=== PATIENT | female | born 1950 | race African-American/Black ===

== ENCOUNTER 2016-12-21 06:59 | Inpatient (IN) | payer OTHER, MEDICARE ==
[2016-12-21] VITALS (13 sets, daily range): BP systolic 102–123; BP diastolic 48–65
[~2016-12-21] VITALS: Ht 170.2 cm; Wt 95.3 kg
[2016-12-21] MEDS ORDERED: celeBREX 200mg Cap **SURGERY PATIENTS ONLY ORAL SCH (07:45)
[2016-12-21] MEDS ORDERED: Clindamycin 600mg/D5W 50ml Pre-Mix IV ONE (07:45)
[2016-12-21] MEDS ORDERED: oxyCONTIN 20mg tab ORAL ONE (07:45)
[2016-12-21] MEDS ORDERED: METFORMIN HCL1000 M1 ORAL (09:50)
[2016-12-21] MEDS ORDERED: TRULICITY0.75 MG/0. SQ (10:00)
[2016-12-21] MEDS ORDERED: LISINOPRIL10 MG ORAL (10:00)
[2016-12-21] MEDS ORDERED: LIPITOR80 MG ORAL (10:15)
[2016-12-21] MEDS ORDERED: CIPRO250 MG ORAL (10:15)
[2016-12-21] MEDS ORDERED: jardiance (10:17)
[2016-12-21] MEDS ORDERED: Propofol 10mg/ml 20ml IV ONE (10:56)
[2016-12-21] MEDS ORDERED: Morphine Sulfate 2mg/ml Inj ONE (10:56)
[2016-12-21] MEDS ORDERED: Morphine Sulfate 4mg/ml Inj ONE (10:56)
[2016-12-21] MEDS ORDERED: fentaNYL 100 mcg/2 mL IV ONE (10:56)
[2016-12-21] MEDS ORDERED: celeBREX 200mg Cap **SURGERY PATIENTS ONLY ORAL ONE (11:36)
[2016-12-21] MEDS ORDERED: Bacitracin 50000 Units Vial ONE (13:40)
[2016-12-21] MEDS ORDERED: Clindamycin 600mg 50 ML IV ONE (13:40)
--- NOTE | 2016-12-21 14:14 | Pre-Procedure Note/Attestation ---
Pre-Procedure Note/Attestation Complete Prior to Procedure Planned Procedure: left Procedure Narrative: left tka Indications for Procedure Pre-Operative Diagnosis: left knee oa Attestation I attest that I discussed the nature of the procedure; its benefits; risks and complications; and alternatives (and the risks and benefits of such alternatives ), prior to the procedure, with the patient (or the patient's legal member service representative). I attest that, if there was a reasonable possibility of needing a blood transfusion, the patient (or the patient's legal member service representative) was given the [facility] standardized written summary, pursuant to the [place] Blood Safety Act ([place] Health and Safety Code # 1645, as amended). I attest that I re-evaluated the patient just prior to the surgery and that there has been no change in the patient's H&P, except as documented below: LINDA VENTURA Dec 21, 2016 14:14
[2016-12-21] MEDS ORDERED: Morphine Sulfate 4mg/ml Inj IVP PRN (14:15)
[2016-12-21] MEDS ORDERED: Morphine Sulfate 2mg/ml Inj IVP PRN ×3 (14:15→18:00)
[2016-12-21] MEDS ORDERED: Milk of Magnesia 30ml Ud ORAL PRN (14:15)
--- NOTE | 2016-12-21 14:16 | Operative Note - PDOC ---
Operative Note Operative Note Pre-op Diagnosis: left knee oa Procedure: left tka Post-op Diagnosis: same as pre-op Operative Findings: consistent w/pre-op dx studies Anesthesia: regional Specimen: yes Complications: none Condition: stable Estimated Blood Loss: minimal Drains: none Implant(s) used?: Yes LINDA VENTURA Dec 21, 2016 14:16
[2016-12-21] MEDS ORDERED: NS Irrig 1000ml IRRIG ONE (14:22)
[2016-12-21] MEDS ORDERED: Duramorph PF 10mg/10ml amp EPIDUR ONE (14:22)
[2016-12-21] MEDS ORDERED: LR 1000ml 1,000 ML IVLG SCH (15:26)
--- NOTE | 2016-12-21 15:26 | Anethesia Preoperative Eval ---
Anesthesia Pre-op PMH/ROS General Date of Evaluation: Dec 21, 2016 Time of Evaluation: 13:48 Anesthesiologist: Martín ASA Score: ASA 3 Mallampati Score Class I : Soft palate, uvula, fauces, pillars visible Class II: Soft palate, uvula, fauces visible Class III: Soft palate, base of uvula visible Class IV: Only hard plate visible Mallampati Classification: Class II Surgeon: Reji Diagnosis: L knee DJD Surgical Procedure: L knee arthroplasty Anesthesia History: none Family History: no anesthesia problems Allergies: Coded Allergies: ORANGE (Verified Allergy, Mild, 12/21/16) WALNUT (Verified Allergy, Mild, 12/21/16) PENICILLINS (Verified Allergy, Unknown, 12/20/16) Medications: see eMAR Past Medical History Cardiovascular: Reports: HTN, Denies: CAD, [place], arrhythmia, other, valve dz Pulmonary: Denies: COPD, LALO, asthma, other Gastrointestinal/Genitourinary: Reports: GERD, Denies: CRI, ESRD, other Neurologic/Psychiatric: Denies: CVA, TIA, dementia, depression/anxiety, other Endocrine: Reports: DM - on pills stable, Denies: hypothyroidism, other, steroids HEENT: Denies: ABSENTEE-SHAWNEE (L), ABSENTEE-SHAWNEE (R), cataract (L), cataract (R), glaucoma, other Hematology/Immune: Denies: DVT, anemia, bleeding disorder, other Musculoskeletal/Integumentary: Reports: DJD, Denies: DDD, OA, RA, edema, other Other: obesity PMH Narrative: as above PSxH Narrative: abdominoplasty Anesthesia Pre-op Phys. Exam Physician Exam Last Vital Signs Date Time Temp Pulse Resp B/P Pulse Ox O2 Delivery O2 Flow Rate FiO2 12/21/16 09:17 97.0 76 18 123/65 96 Room Air Constitutional: NAD Neurologic: CN 2-12 intact Cardiovascular: RRR, no M/R/G Respiratory: CTA Gastrointestinal: other - obesity Airway Exam Mallampati Score: Class II MO: limited Neck: flexible ROM: full Teeth: intact Dentures: no lower, no upper Anesthesia Pre-op A/P Labs see chart Studies Pre-op Studies: EKG - NSR Risk Assessment & Plan Assessment: ASA 3 Plan: SAB vs GA L femoral nerve block for postoperative analgesia on surgeon request. Status Change Before Surgery: No Pre-Antibiotics Drug: Clindamycin 600mg. Given Within 1 Hr of Incision: Yes Time Given: 15:05 AIDE BRYANT M.D. Dec 21, 2016 15:26
[2016-12-21] MEDS ORDERED: DiphenhydrAMINE 50mg/ml Inj IVP PRN (15:30)
[2016-12-21] MEDS ORDERED: Meperidine 25mg/ml Inj IV PRN (15:30)
[2016-12-21] MEDS ORDERED: Tranexamic Acid 1,000 MG in NS 55 ML IVPB ONE (15:30)
[2016-12-21] MEDS ORDERED: Kenalog-40 1ml Vial ONE (15:52)
[2016-12-21] MEDS ORDERED: Morphine Sulfate PF 10 ML ONE (15:52)
[2016-12-21] MEDS ORDERED: Ketorolac 30mg Inj ONE (15:53)
[2016-12-21] MEDS ORDERED: Bupivacaine w/Epi 0.25% 30ml Vial INJ ONE (15:53)
[2016-12-21] MEDS ORDERED: Midazolam 2mg/2ml Inj IVP PRN (18:00)
[2016-12-21] MEDS: Pericolace tab ORAL SCH (20:00)
[2016-12-21] MEDS: Docusate 100mg tablet ORAL SCH (20:00)
--- NOTE | 2016-12-21 21:02 | Consultation ---
History of Present Illness General Date patient seen: Dec 21, 2016 Time patient seen: 20:57 Chief Complaint: L knee pain Referring physician: Stephen Mendoza MD Reason for Consultation: Medical management Present Illness Allergies: Coded Allergies: ORANGE (Verified Allergy, Mild, 12/21/16) WALNUT (Verified Allergy, Mild, 12/21/16) PENICILLINS (Verified Allergy, Unknown, 12/20/16) Medication History Scheduled Atorvastatin (Lipitor), 40 MG ORAL BEDTIME, (Reported) Ciprofloxacin HCl (Cipro), 500 MG ORAL EVERY 12 HOURS, (Reported) Dulaglutide (Trulicity), 0.75 MG SQ 1xweek, (Reported) Lisinopril* (Lisinopril*), 10 MG ORAL DAILY, (Reported) Metformin Hcl* (Metformin Hcl*), 1,000 MG ORAL BID, (Reported) [jardiance], 25 MG DAILY, (Reported) Patient History History Provided By: Patient Healthcare decision maker ADRYAN MURDOCK Resuscitation status Advanced Directive on File Past Medical/Surgical History Past Medical/Surgical History: (1) HTN (hypertension) (2) DM2 (diabetes mellitus, type 2) (3) Arthritis of knee, left Family History Family History: (1) Family history in first degree relatives is unremarkable Social History Social History: (1) No significant social history Review of Systems ROS Narrative CONSTITUTIONAL: No weight loss, fever, chills, weakness or fatigue. HEENT: Eyes: No visual loss, blurred vision, double vision or yellow sclerae. Ears, Nose, Throat: No hearing loss, sneezing, congestion, runny nose or sore throat. SKIN: No rash or itching. CARDIOVASCULAR: No chest pain, chest pressure or chest discomfort. No palpitations or edema. RESPIRATORY: No shortness of breath, cough or sputum. GASTROINTESTINAL: No anorexia, nausea, vomiting or diarrhea. No abdominal pain or blood. NEUROLOGICAL: No headache, dizziness, syncope, paralysis, ataxia, numbness or tingling in the extremities. No change in bowel or bladder control. MUSCULOSKELETAL: No muscle, back pain, +L knee joint pain no stiffness. HEMATOLOGIC: No anemia, bleeding or bruising. LYMPHATICS: No enlarged nodes. No history of splenectomy. PSYCHIATRIC: No history of depression or anxiety. ENDOCRINOLOGIC: No reports of sweating, cold or heat intolerance. No polyuria or polydipsia. ALLERGIES: No history of asthma, hives, eczema or rhinitis. Physical Exam Physical Exam Narrative General: alert, cooperative, no distress, appears stated age Head: normocephalic, without obvious abnormality, atraumatic Eyes: conjunctivae/corneas clear. PERRL, EOM's intact Throat: lips, mucosa, and tongue normal. MMM Neck: supple, symmetrical, trachea midline, and no JVD Lungs: clear to auscultation bilaterally Heart: regular rate and rhythm, S1, S2 normal, no murmur, click, rub or gallop Abdomen: soft, non-tender, non-distended, bowel sounds normal; no masses or organomegaly Extremities: extremities normal, atraumatic, no cyanosis or edema Pulses: 2+ and symmetric Skin: skin color, texture, turgor normal; no rashes or lesions Neurologic: grossly normal, no focal deficits Last 24 Hour Vital Signs Date Time Temp Pulse Resp B/P Pulse Ox O2 Delivery O2 Flow Rate FiO2 12/21/16 19:00 98.1 84 20 113/57 95 Nasal Cannula 2.0 12/21/16 18:50 98.0 85 18 110/55 97 Nasal Cannula 2.0 12/21/16 18:15 83 18 106/48 97 Nasal Cannula 2.0 12/21/16 17:55 76 18 120/64 97 Nasal Cannula 2.0 12/21/16 17:45 75 18 102/52 97 Nasal Cannula 2.0 12/21/16 17:30 75 18 111/55 97 Nasal Cannula 2.0 12/21/16 17:15 79 18 114/53 97 Nasal Cannula 2.0 12/21/16 17:00 76 18 118/55 97 Nasal Cannula 2.0 12/21/16 16:48 73 18 102/52 97 Nasal Cannula 2.0 12/21/16 16:43 71 18 107/56 97 Nasal Cannula 2.0 12/21/16 16:38 75 18 111/55 97 Nasal Cannula 2.0 12/21/16 09:17 97.0 76 18 123/65 96 Room Air Height (Feet): 5 Height (Inches): 7.00 Weight (Pounds): 210 Medications Current Medications Medications (Trade) Dose Ordered Sig/David Route PRN Reason Start Time Stop Time Status Last Admin Dose Admin Acetaminophen (Tylenol) 1,000 mg THREE TIMES A DAY ORAL 12/21/16 20:00 01/20/17 19:59 Celecoxib (CeleBREX) 200 mg DAILY ORAL 12/22/16 09:00 01/21/17 08:59 Clindamycin HCl/ Dextrose (Cleocin 600mg) 50 ml @ 100 mls/hr Q8HR IVPB 12/21/16 22:00 12/28/16 21:59 Dextrose/ Electrolytes (D5 0.45%NS W/ KCl 20mEq) 1,000 ml @ 75 mls/hr [id number] IV 12/21/16 20:30 01/20/17 20:29 Docusate Sodium (Colace) 100 mg THREE TIMES A DAY ORAL 12/21/16 20:00 01/20/17 19:59 Enoxaparin Sodium (Lovenox) 40 mg DAILY SUBQ 12/22/16 09:00 01/05/17 08:59 Ferrous Sulfate (Feosol) 325 mg THREE TIMES A DAY ORAL 12/21/16 20:00 01/20/17 19:59 Gabapentin (Neurontin) 100 mg THREE TIMES A DAY ORAL 12/21/16 20:00 01/20/17 19:59 Magnesium Hydroxide (Mom) 30 ml DAILY PRN ORAL Constipation 12/21/16 14:15 01/20/17 14:14 Midazolam HCl 1 mg 1 mg Q15M PRN IVP For Anxiety 12/21/16 18:00 12/21/16 22:00 12/21/16 18:11 Morphine Sulfate (Morphine Sulfate) 1 mg Q4H PRN IVP Mild Pain (Pain Scale 1-3) 12/21/16 14:15 12/28/16 14:14 Morphine Sulfate (Morphine Sulfate) 2 mg Q4H PRN IVP Moderate Pain (Pain Scale 4-6) 12/21/16 14:15 12/28/16 14:14 Morphine Sulfate (Morphine Sulfate) 2 mg Q5M PRN IVP For Pain 12/21/16 18:00 12/21/16 22:00 12/21/16 17:55 Morphine Sulfate (Morphine Sulfate) 4 mg Q4H PRN IVP Severe Pain (Pain Scale 7-10) 12/21/16 14:15 12/28/16 14:14 Ondansetron HCl (Zofran) 4 mg EVERY 6 HOURS PRN IVP Nausea & Vomiting 12/21/16 14:15 01/20/17 14:14 Oxycodone HCl (OxyCONTIN) 20 mg EVERY 12 HOURS ORAL 12/21/16 21:00 12/28/16 20:59 Oxycodone HCl (Roxicodone) 5 mg Q1H PRN ORAL Breakthrough Pain 12/21/16 14:15 12/28/16 14:14 Senna/Docusate Sodium (Kimberly-Colace) 1 ea TWICE A DAY ORAL 12/21/16 20:00 01/20/17 19:59 Temazepam (Restoril) 7.5 mg HSPRN PRN ORAL Insomnia 12/21/16 14:15 12/28/16 14:14 Assessment/Plan Problem List: (1) Arthritis of knee, left Assessment & Plan: - s/p L TKA - encourage mobilization/ambulation - encourage incentive spirometry to optimize pulmonary hygiene - DVT/GI prophylaxis as appropriate - ctm CBC and hemodynamics - ctm electrolytes, adjust/replete prn - PT/OT/ST, if indicated - pain control, supportive care, bowel regimen - DC planning Total of 31mins of prolonged time spent on care coordination and counseling, in addition to face to face time ICD Codes: M17.12 - Unilateral primary osteoarthritis, left knee SNOMED: 870921883 (2) HTN (hypertension) Assessment & Plan: Cont BP meds, thus far stable ICD Codes: I10 - Essential (primary) hypertension SNOMED: 06822609 (3) DM2 (diabetes mellitus, type 2) Assessment & Plan: Stable Cont sliding scale ICD Codes: E11.9 - Type 2 diabetes mellitus without complications SNOMED: 89478023 PIOTR LEAL Dec 21, 2016 21:02
[2016-12-21] MEDS: Acetaminophen 500mg (ES) tab ORAL SCH (21:53)
[2016-12-21] MEDS: oxyCONTIN 20mg tab ORAL SCH (21:54)
[2016-12-21] MEDS: D5 1/2NS w/KCl 20mEq 1,000 ML IV SCH (21:55)
--- NOTE | 2016-12-21 21:58 | Operative Note - Dictated ---
DATE OF OPERATION: 12/21/2016 PREOPERATIVE DIAGNOSES: 1. Left knee osteoarthritis. 2. Body mass index over 35. POSTOPERATIVE DIAGNOSES: 1. Left knee osteoarthritis. 2. Body mass index over 35. PROCEDURE: Left total knee arthroplasty. COMPLICATIONS: Include BMI over 35. SURGEON: Stephen Mendoza M.D. ANESTHESIA: Spinal with femoral adductor block. INDICATION FOR PROCEDURE: The patient is a pleasant 66-year-old female with progressive end-stage osteoarthritis. She failed conservative treatment and elected to undergo left total knee arthroplasty. Risks, limitations, expectations, and complications of the procedure were discussed in detail. All questions were addressed. DESCRIPTION OF PROCEDURE: An informed consent was obtained. The patient was taken to the operating room, placed supine under spinal femoral adductor block. Tourniquet was applied to left proximal thigh. Left leg was prepped and draped in a sterile manner. Time-out was performed. Midvastus arthrotomy was performed. Distal femur was well visualized. Distal femoral cutting block was then placed. Distal femur was then resected. A sizing guide was placed. It measured between 6 and 7. A size 6 was selected. A four in one size 6 cutting block was placed. Anterior and posterior chamfer cuts were then made. At this point, medial and lateral meniscus were removed. Proximal tibia was well visualized. The external tibial cutting guide was then placed and proximal tibia was then resected. Once this was done, the trial with the size 6 femur and size 5 femur with a 9 mm insert was performed. Knee came out to full extension, 10 degrees of flexion and 90 degrees of flexion. Good stability with varus and valgus stress, mid flexion, extension, and 90 degrees of flexion. At this point, the patella was everted, measured 24 mm. Freehand resection was performed. A 33 mm patellar component was selected. We placed in a Cam at 24 mm. At this point, cements were prepared. All implants were impacted into place. Excess cement was removed. Subfascial injection contained 0.025% Marcaine with epinephrine, 30 mg of Toradol, 5 mL of Duramorph, and 40 mg of Kenalog was injected in periarticular tissues. Arthrotomy site was closed with #1 Vicryl suture, 2-0 Vicryl suture, and 3-0 Monocryl sutures. Steri-Strips, Dermabond dressing, and compression dressing were applied. The patient was awoken and taken to recovery room with stable vital signs. ESTIMATED BLOOD LOSS: Minimal. COMPLICATIONS: None. SPECIMENS: Good multiple bone cuts. IMPLANTS: Include [place] [employer] size 6 femoral component, size 5 tibial component, 9 mm insert, and a 33 mm patellar component. Stephen Mendoza M.D. DR: FABIAN JOB#: [id number] CC: NBA
[2016-12-21] MEDS ORDERED: ceFAZolin sod 2 GM in D5W 110 ML IV SCH (22:00)
[2016-12-21] MEDS: Clindamycin 600mg 50 ML IVPB SCH (22:25)
[2016-12-21] MEDS: NovoLOG Insulin Flexpen SUBQ SCH (23:42)
[2016-12-22] VITALS: BP 119/56
[2016-12-22 04:00] VITALS: BP 116/73
[2016-12-22 04:56] LABS: BASOPHILS % (AUTO) 0.7 % (0.0-2.0); EOSINOPHILS % (AUTO) 0.2 % (0.0-3.0); MEAN CORPUSCULAR HEMOGLOBIN 28.4 PG (27.0-31.0); MEAN CORPUSCULAR HGB CONC 32.9 G/DL (32.0-36.0); MEAN CORPUSCULAR VOLUME 86 FL (80-99); MONOCYTES % (AUTO) 6.4 % (1.0-10.0); NEUTROPHILS % (AUTO) 81.8 % (45.0-75.0); PLATELET COUNT 341 K/UL (150-450); RED BLOOD COUNT 4.25 M/UL (4.20-5.40); RED CELL DISTRIBUTION WIDTH 13.3 % (11.6-14.8); WHITE BLOOD COUNT 14.3 K/UL (4.8-10.8)
[2016-12-22 05:12] LABS: ANION GAP 14 (5-15); CALCIUM 8.8 mg/dL (8.6-10.2); CARBON DIOXIDE 26 mEQ/L (20-30); CHLORIDE 98 mEQ/L (98-107); GLOMERULAR FILTRATION RATE > 60 mL/min (>60); HEMOLYSIS 3; POTASSIUM 4.2 mEQ/L (3.4-4.9); SODIUM 138 mEQ/L (135-145)
[2016-12-22] MEDS: Clindamycin 600mg 50 ML IVPB SCH ×3 (05:33→21:35)
[2016-12-22] MEDS: NovoLOG Insulin Flexpen SUBQ SCH ×4 (06:45→21:39)
[2016-12-22 08:00] VITALS: BP 118/80
--- NOTE | 2016-12-22 08:22 | 48 Hour Post Anesthesia Eval ---
Post Anesthesia Evaluation Procedure: Left TKR Date of Evaluation: Dec 22, 2016 Time of Evaluation: 07:00 Blood Pressure Systolic: 116 0: 73 Pulse Rate: 76 Respiratory Rate: 18 Temperature (Fahrenheit): 97 O2 Sat by Pulse Oximetry: 95 Airway: patent Nausea: No Vomiting: No Pain Intensity: 3 Hydration Status: adequate Cardiopulmonary Status: at baseline Mental Status/LOC: patient returned to baseline Post-Anesthesia Complications: 0 Follow-up care needed: N/A - further care as per primary team GEORGIE JOHN M.D. Dec 22, 2016 08:22
[2016-12-22] MEDS: Docusate 100mg tablet ORAL SCH ×3 (08:38→17:28)
[2016-12-22] MEDS: Ciprofloxacin 500mg tab ORAL SCH ×2 (08:38→21:35)
[2016-12-22] MEDS: Pericolace tab ORAL SCH ×2 (08:39→17:27)
[2016-12-22] MEDS: celeBREX 200mg Cap **SURGERY PATIENTS ONLY ORAL SCH (08:40)
[2016-12-22] MEDS: oxyCONTIN 20mg tab ORAL SCH ×2 (08:43→21:37)
[2016-12-22] MEDS: metFORMIN 500mg tab ORAL SCH ×2 (08:43→17:28)
[2016-12-22] MEDS: Enoxaparin 40mg Inj SUBQ SCH (08:49)
[2016-12-22] MEDS: Lisinopril 10mg tab ORAL SCH (08:52)
[2016-12-22] MEDS: Acetaminophen 500mg (ES) tab ORAL SCH ×3 (08:52→18:00)
[2016-12-22] MEDS: D5 1/2NS w/KCl 20mEq 1,000 ML IV SCH (09:50)
[2016-12-22] MEDS ORDERED: 1/2NS w/KCl 20mEq 1000ml 1,000 ML IV SCH (11:30)
[2016-12-22 11:57] VITALS: BP 109/63
--- NOTE | 2016-12-22 11:59 | General Progress Note ---
Assessment/Plan Problem List: (1) Arthritis of knee, left Assessment & Plan: - s/p L TKA - encourage mobilization/ambulation - encourage incentive spirometry to optimize pulmonary hygiene - DVT/GI prophylaxis as appropriate - ctm CBC and hemodynamics - ctm electrolytes, adjust/replete prn - PT/OT/ST, if indicated - pain control, supportive care, bowel regimen - DC planning Total of 31mins of prolonged time spent on care coordination and counseling, in addition to face to face time ICD Codes: M17.12 - Unilateral primary osteoarthritis, left knee SNOMED: 974455376 (2) HTN (hypertension) Assessment & Plan: Cont BP meds, thus far stable ICD Codes: I10 - Essential (primary) hypertension SNOMED: 03067230 (3) DM2 (diabetes mellitus, type 2) Assessment & Plan: Stable Cont sliding scale, metformin Change to diabetic diet ICD Codes: E11.9 - Type 2 diabetes mellitus without complications SNOMED: 28116526 Subjective Date patient seen: Dec 22, 2016 Time patient seen: 11:58 ROS Limited/Unobtainable: No Allergies: Coded Allergies: ORANGE (Verified Allergy, Mild, 12/21/16) WALNUT (Verified Allergy, Mild, 12/21/16) PENICILLINS (Verified Allergy, Unknown, 12/20/16) Subjective s/p L TKA POD#1, no periop or postop complications. Postop pain well controlled. No chest pain or dyspnea. Objective Last 24 Hour Vital Signs Date Time Temp Pulse Resp B/P Pulse Ox O2 Delivery O2 Flow Rate FiO2 12/22/16 11:57 98.2 79 18 109/63 97 Nasal Cannula 2.0 12/22/16 08:52 118/80 12/22/16 08:22 76 18 95 12/22/16 08:00 99.8 77 20 118/80 99 Nasal Cannula 2.0 12/22/16 04:00 97.0 76 18 116/73 95 Nasal Cannula 2.0 12/22/16 00:00 98.1 89 18 119/56 95 Nasal Cannula 2.0 12/21/16 22:52 97.7 12/21/16 20:00 97.7 86 18 120/62 96 Nasal Cannula 2.0 12/21/16 19:00 98.1 84 20 113/57 95 Nasal Cannula 2.0 12/21/16 18:50 98.0 85 18 110/55 97 Nasal Cannula 2.0 12/21/16 18:15 83 18 106/48 97 Nasal Cannula 2.0 12/21/16 17:55 76 18 120/64 97 Nasal Cannula 2.0 12/21/16 17:45 75 18 102/52 97 Nasal Cannula 2.0 12/21/16 17:30 75 18 111/55 97 Nasal Cannula 2.0 12/21/16 17:15 79 18 114/53 97 Nasal Cannula 2.0 12/21/16 17:00 76 18 118/55 97 Nasal Cannula 2.0 12/21/16 16:48 73 18 102/52 97 Nasal Cannula 2.0 12/21/16 16:43 71 18 107/56 97 Nasal Cannula 2.0 12/21/16 16:38 75 18 111/55 97 Nasal Cannula 2.0 Intake and Output 12/21/16 12/22/16 19:00 07:00 Intake Total 2000 ml 900 ml Output Total 300 ml 800 ml Balance 1700 ml 100 ml Intake Oral 300 ml IV Total 2000 ml 600 ml Output Urine Total 150 ml 800 ml Estimated Blood Loss 150 ml # Voids 1 Laboratory Tests 12/22/16 03:56: White Blood Count 14.3H, Red Blood Count 4.25, Hemoglobin 12.0, Hematocrit 36.6L , Mean Corpuscular Volume 86, Mean Corpuscular Hemoglobin 28.4, Mean Corpuscular Hemoglobin Concent 32.9, Red Cell Distribution Width 13.3, Platelet Count 341, Mean Platelet Volume 6.0L, Neutrophils (%) (Auto) 81.8H, Lymphocytes (%) (Auto) 11.0L, Monocytes (%) (Auto) 6.4, Eosinophils (%) (Auto) 0.2, Basophils (%) (Auto) 0.7, Sodium Level 138, Potassium Level 4.2, Chloride Level 98, Carbon Dioxide Level 26, Anion Gap 14, Blood Urea Nitrogen 22, Creatinine 1.0H, Estimat Glomerular Filtration Rate > 60, Glucose Level 220H, Calcium Level 8.8 Height (Feet): 5 Height (Inches): 7.00 Weight (Pounds): 210 Objective General: alert, cooperative, no distress, appears stated age Head: normocephalic, without obvious abnormality, atraumatic Eyes: conjunctivae/corneas clear. PERRL, EOM's intact Throat: lips, mucosa, and tongue normal. MMM Neck: supple, symmetrical, trachea midline, and no JVD Lungs: clear to auscultation bilaterally Heart: regular rate and rhythm, S1, S2 normal, no murmur, click, rub or gallop Abdomen: soft, non-tender, non-distended, bowel sounds normal; no masses or organomegaly Extremities: extremities normal, atraumatic, no cyanosis or edema Pulses: 2+ and symmetric Skin: skin color, texture, turgor normal; no rashes or lesions Neurologic: grossly normal, no focal deficits PIOTR LEAL Dec 22, 2016 11:59
[2016-12-22 16:00] VITALS: BP 111/60
[2016-12-22 20:00] VITALS: BP 127/67
[2016-12-23 00:27] VITALS: BP 130/61
[2016-12-23 04:00] VITALS: BP 143/77
[2016-12-23 04:56] LABS: EOSINOPHILS % (AUTO) 1.9 % (0.0-3.0); LYMPHOCYTES % (AUTO) 17.8 % (20.0-45.0); MEAN CORPUSCULAR HEMOGLOBIN 28.6 PG (27.0-31.0); MEAN CORPUSCULAR HGB CONC 33.1 G/DL (32.0-36.0); MEAN CORPUSCULAR VOLUME 86 FL (80-99); MEAN PLATELET VOLUME 5.9 FL (6.5-10.1); MONOCYTES % (AUTO) 6.3 % (1.0-10.0); NEUTROPHILS % (AUTO) 72.9 % (45.0-75.0); PLATELET COUNT 335 K/UL (150-450); RED BLOOD COUNT 4.13 M/UL (4.20-5.40); RED CELL DISTRIBUTION WIDTH 13.3 % (11.6-14.8)
[2016-12-23 05:08] LABS: ANION GAP 16 (5-15); CALCIUM 8.8 mg/dL (8.6-10.2); CARBON DIOXIDE 23 mEQ/L (20-30); CHLORIDE 98 mEQ/L (98-107); CREATININE 0.9 mg/dL (0.5-0.9); GLOMERULAR FILTRATION RATE > 60 mL/min (>60); HEMOLYSIS 0; POTASSIUM 4.1 mEQ/L (3.4-4.9); SODIUM 137 mEQ/L (135-145)
[2016-12-23] MEDS: NovoLOG Insulin Flexpen SUBQ SCH ×4 (06:12→21:36)
[2016-12-23] MEDS: Clindamycin 600mg 50 ML IVPB SCH ×3 (06:21→21:38)
[2016-12-23 08:00] VITALS: BP 153/81
[2016-12-23] MEDS: Pericolace tab ORAL SCH ×2 (08:10→18:00)
[2016-12-23] MEDS: metFORMIN 500mg tab ORAL SCH ×2 (08:10→17:06)
[2016-12-23] MEDS: celeBREX 200mg Cap **SURGERY PATIENTS ONLY ORAL SCH (08:10)
[2016-12-23] MEDS: Docusate 100mg tablet ORAL SCH ×3 (08:10→17:05)
[2016-12-23] MEDS: Ciprofloxacin 500mg tab ORAL SCH ×2 (08:11→21:36)
[2016-12-23] MEDS: Lisinopril 10mg tab ORAL SCH (08:12)
[2016-12-23] MEDS: Acetaminophen 500mg (ES) tab ORAL SCH ×3 (08:12→17:05)
[2016-12-23] MEDS: oxyCONTIN 20mg tab ORAL SCH ×2 (08:13→21:37)
[2016-12-23] MEDS: Enoxaparin 40mg Inj SUBQ SCH (08:26)
[2016-12-23 12:00] VITALS: BP 131/65
--- NOTE | 2016-12-23 14:00 | General Progress Note ---
Assessment/Plan Problem List: (1) Arthritis of knee, left Assessment & Plan: - s/p L TKA - encourage mobilization/ambulation - encourage incentive spirometry to optimize pulmonary hygiene - DVT/GI prophylaxis as appropriate - ctm CBC and hemodynamics - ctm electrolytes, adjust/replete prn - PT/OT/ST, if indicated - pain control, supportive care, bowel regimen - DC planning Total of 31mins of prolonged time spent on care coordination and counseling, in addition to face to face time ICD Codes: M17.12 - Unilateral primary osteoarthritis, left knee SNOMED: 417772853 (2) HTN (hypertension) Assessment & Plan: Cont BP meds, thus far stable ICD Codes: I10 - Essential (primary) hypertension SNOMED: 03855380 (3) DM2 (diabetes mellitus, type 2) Assessment & Plan: Stable Cont sliding scale, metformin Change to diabetic diet ICD Codes: E11.9 - Type 2 diabetes mellitus without complications SNOMED: 56381431 Subjective Date patient seen: Dec 23, 2016 Time patient seen: 13:59 ROS Limited/Unobtainable: No Allergies: Coded Allergies: ORANGE (Verified Allergy, Mild, 12/21/16) WALNUT (Verified Allergy, Mild, 12/21/16) PENICILLINS (Verified Allergy, Unknown, 12/20/16) Subjective s/p L TKA POD#2, no periop or postop complications. Postop pain well controlled. No chest pain or dyspnea. Objective Last 24 Hour Vital Signs Date Time Temp Pulse Resp B/P Pulse Ox O2 Delivery O2 Flow Rate FiO2 12/23/16 12:00 97.0 89 18 131/65 100 Room Air 12/23/16 08:12 153/81 12/23/16 08:00 96.5 94 20 153/81 94 Room Air 12/23/16 04:00 97.5 94 18 143/77 95 Room Air 12/23/16 00:27 97.9 92 18 130/61 95 Room Air 12/22/16 20:00 98.2 93 18 127/67 95 Room Air 12/22/16 16:00 98.7 79 18 111/60 98 Nasal Cannula 2.0 Intake and Output 12/22/16 12/23/16 19:00 07:00 Intake Total 650 ml 800 ml Output Total 800 ml 700 ml Balance -150 ml 100 ml Intake Oral 600 ml 800 ml IV Total 50 ml Output Urine Total 800 ml 700 ml Laboratory Tests 12/23/16 04:12: White Blood Count 13.0H, Red Blood Count 4.13L, Hemoglobin 11.8L, Hematocrit 35.7L, Mean Corpuscular Volume 86, Mean Corpuscular Hemoglobin 28.6, Mean Corpuscular Hemoglobin Concent 33.1, Red Cell Distribution Width 13.3, Platelet Count 335, Mean Platelet Volume 5.9L, Neutrophils (%) (Auto) 72.9, Lymphocytes ( %) (Auto) 17.8L, Monocytes (%) (Auto) 6.3, Eosinophils (%) (Auto) 1.9, Basophils (%) (Auto) 1.0, Sodium Level 137, Potassium Level 4.1, Chloride Level 98, Carbon Dioxide Level 23, Anion Gap 16H, Blood Urea Nitrogen 21, Creatinine 0.9, Estimat Glomerular Filtration Rate > 60, Glucose Level 194H, Calcium Level 8.8 Height (Feet): 5 Height (Inches): 7.00 Weight (Pounds): 210 Objective General: alert, cooperative, no distress, appears stated age Head: normocephalic, without obvious abnormality, atraumatic Eyes: conjunctivae/corneas clear. PERRL, EOM's intact Throat: lips, mucosa, and tongue normal. MMM Neck: supple, symmetrical, trachea midline, and no JVD Lungs: clear to auscultation bilaterally Heart: regular rate and rhythm, S1, S2 normal, no murmur, click, rub or gallop Abdomen: soft, non-tender, non-distended, bowel sounds normal; no masses or organomegaly Extremities: extremities normal, atraumatic, no cyanosis or edema Pulses: 2+ and symmetric Skin: skin color, texture, turgor normal; no rashes or lesions Neurologic: grossly normal, no focal deficits PIOTR LEAL Dec 23, 2016 14:00
[2016-12-23 16:00] VITALS: BP 130/65
[2016-12-24] VITALS: BP 141/67
[2016-12-24] MEDS: oxyCODONE 5mg IR tab ORAL PRN (01:38)
[2016-12-24 04:00] VITALS: BP 154/73
[2016-12-24] MEDS: NovoLOG Insulin Flexpen SUBQ SCH ×4 (06:11→22:03)
[2016-12-24] MEDS: Clindamycin 600mg 50 ML IVPB SCH ×3 (06:12→22:01)
--- NOTE | 2016-12-24 07:55 | Immediate Post-Op Evaluation ---
Immediate Post-Op Evalulation Immediate Post-Op Evalulation Procedure: Left TKR Date of Evaluation: Dec 21, 2016 Time of Evaluation: 16:45 IV Fluids: 1200 Blood Products: none Estimated Blood Loss: 150 Urinary Output: 100 Blood Pressure Systolic: 118 Blood Pressure Diastolic: 57 Pulse Rate: 76 Respiratory Rate: 20 O2 Sat by Pulse Oximetry: 99 Temperature (Fahrenheit): 97.6 Pain Score (1-10): 1 Nausea: No Vomiting: No Complications none Patient Status: awake, patent, none Hydration Status: adequate AIDE BRYANT M.D. Dec 24, 2016 07:55
[2016-12-24 08:00] VITALS: BP 140/63
[2016-12-24 08:17] LABS: BASOPHILS % (AUTO) 0.8 % (0.0-2.0); EOSINOPHILS % (AUTO) 2.9 % (0.0-3.0); MEAN CORPUSCULAR HEMOGLOBIN 27.8 PG (27.0-31.0); MEAN CORPUSCULAR HGB CONC 32.2 G/DL (32.0-36.0); MEAN CORPUSCULAR VOLUME 87 FL (80-99); MONOCYTES % (AUTO) 6.7 % (1.0-10.0); NEUTROPHILS % (AUTO) 71.5 % (45.0-75.0); PLATELET COUNT 345 K/UL (150-450); RED BLOOD COUNT 4.17 M/UL (4.20-5.40); RED CELL DISTRIBUTION WIDTH 13.2 % (11.6-14.8); WHITE BLOOD COUNT 12.9 K/UL (4.8-10.8)
[2016-12-24] MEDS: Docusate 100mg tablet ORAL SCH ×3 (08:43→17:56)
[2016-12-24] MEDS: Lisinopril 10mg tab ORAL SCH (08:43)
[2016-12-24] MEDS: metFORMIN 500mg tab ORAL SCH ×2 (08:44→17:55)
[2016-12-24] MEDS: Pericolace tab ORAL SCH ×2 (08:44→17:55)
[2016-12-24] MEDS: Ciprofloxacin 500mg tab ORAL SCH ×2 (08:44→22:01)
[2016-12-24] MEDS: oxyCONTIN 20mg tab ORAL SCH ×2 (08:44→22:01)
[2016-12-24] MEDS: celeBREX 200mg Cap **SURGERY PATIENTS ONLY ORAL SCH (08:44)
[2016-12-24] MEDS: Acetaminophen 500mg (ES) tab ORAL SCH ×3 (08:45→17:55)
[2016-12-24] MEDS: Enoxaparin 40mg Inj SUBQ SCH (08:46)
--- NOTE | 2016-12-24 09:58 | Consultation ---
DATE OF CONSULTATION: ORTHOPEDIC CONSULTATION HISTORY OF PRESENT ILLNESS: The patient is status post total knee arthroplasty. She is doing very well. No new complaints. She is ambulating very well with physical therapy. PHYSICAL EXAMINATION: EXTREMITIES: The incision is clean, dry, and intact. Mild swelling. NEUROVASCULAR: Normal. IMAGING STUDIES: Implant is in good position. ASSESSMENT: Status post left total knee arthroplasty. DISCUSSION: At this point, she is doing well. I think she will be discharged to rehabilitation tomorrow. Follow up as an outpatient. Signs and symptoms for DVT were discussed with the patient. She will be maintained on aspirin for DVT prophylaxis. She was instructed on local wound care. She has also reviewed postoperative total knee protocol for therapy. Stephen Mendoza M.D. DR: MELISSA JOB#: [id number] CC:
--- NOTE | 2016-12-24 11:03 | Diagnostic Imaging Report ---
Indication: POST-OP, status post total knee arthroplasty Technique: 2 views of the left knee Comparison: None Findings: Patient is status post total knee arthroplasty. Good anatomic alignment of the prosthesis. Retained air from the surgical wound is seen within the soft tissues. Impression: Postoperative left knee. No unusual features
[2016-12-24 12:00] VITALS: BP 128/66
[2016-12-24 16:00] VITALS: BP 138/77
[2016-12-24 20:17] VITALS: BP 146/77
--- NOTE | 2016-12-25 00:05 | General Progress Note ---
Assessment/Plan Problem List: (1) Arthritis of knee, left ICD Codes: M17.12 - Unilateral primary osteoarthritis, left knee SNOMED: 496679566 (2) DM2 (diabetes mellitus, type 2) ICD Codes: E11.9 - Type 2 diabetes mellitus without complications SNOMED: 31155368 (3) HTN (hypertension) ICD Codes: I10 - Essential (primary) hypertension SNOMED: 75832556 Status: stable Status Narrative - s/p L TKA on 12/21/16 - encourage mobilization/ambulation - encourage incentive spirometry to optimize pulmonary hygiene - DVT/GI prophylaxis as appropriate - ctm CBC and hemodynamics - ctm electrolytes, adjust/replete prn - PT/OT - pain control, supportive care, bowel regimen - DC planning to SNF - Cont home BP meds - Cont home DM2 meds, MTF - ESTELA Total of 31mins of prolonged time spent on care coordination and counseling, in addition to face to face time D/w pt, family, surgery, SW/CM regarding mgmt, discharge planning Subjective Date patient seen: Dec 25, 2016 Time patient seen: 16:00 ROS Limited/Unobtainable: No Constitutional: Reports: no symptoms HEENT: Reports: no symptoms Cardiovascular: Reports: no symptoms Respiratory: Reports: no symptoms Gastrointestinal/Abdominal: Reports: no symptoms Genitourinary: Reports: no symptoms Neurologic/Psychiatric: Reports: no symptoms Endocrine: Reports: no symptoms Hematologic/Lymphatic: Reports: no symptoms Allergies: Coded Allergies: ORANGE (Verified Allergy, Mild, 12/21/16) WALNUT (Verified Allergy, Mild, 12/21/16) PENICILLINS (Verified Allergy, Unknown, 12/20/16) All Systems: reviewed and negative except above Subjective No acute o/n events Doing well Pain controlled Awaiting SNF placement Objective Last 24 Hour Vital Signs Date Time Temp Pulse Resp B/P Pulse Ox O2 Delivery O2 Flow Rate FiO2 12/24/16 20:17 97.7 98 18 146/77 96 Room Air 12/24/16 18:55 98.2 12/24/16 16:00 98.2 90 18 138/77 99 Room Air 12/24/16 12:00 96.6 94 18 128/66 96 Room Air 12/24/16 10:46 99.0 12/24/16 08:43 140/63 12/24/16 08:00 99.0 91 18 140/63 98 Room Air 12/24/16 07:55 76 20 99 12/24/16 04:00 98.4 93 17 154/73 96 Room Air Intake and Output 12/24/16 12/25/16 19:00 07:00 Intake Total 700 ml Balance 700 ml Intake Oral 700 ml # Voids 3 # Bowel Movements 1 Laboratory Tests 12/24/16 07:50: White Blood Count 12.9H, Red Blood Count 4.17L, Hemoglobin 11.6L, Hematocrit 36.1L, Mean Corpuscular Volume 87, Mean Corpuscular Hemoglobin 27.8, Mean Corpuscular Hemoglobin Concent 32.2, Red Cell Distribution Width 13.2, Platelet Count 345, Mean Platelet Volume 6.0L, Neutrophils (%) (Auto) 71.5, Lymphocytes ( %) (Auto) 18.0L, Monocytes (%) (Auto) 6.7, Eosinophils (%) (Auto) 2.9, Basophils (%) (Auto) 0.8 Height (Feet): 5 Height (Inches): 7.00 Weight (Pounds): 210 Objective General: alert, cooperative, no distress, appears stated age Head: normocephalic, without obvious abnormality, atraumatic Eyes: conjunctivae/corneas clear. PERRL, EOM's intact Throat: lips, mucosa, and tongue normal. MMM Neck: supple, symmetrical, trachea midline, and no JVD Lungs: clear to auscultation bilaterally Heart: regular rate and rhythm, S1, S2 normal, no murmur, click, rub or gallop Abdomen: soft, non-tender, non-distended, bowel sounds normal; no masses or organomegaly Extremities: extremities normal, atraumatic, no cyanosis or edema Pulses: 2+ and symmetric Skin: skin color, texture, turgor normal; no rashes or lesions Neurologic: grossly normal, no focal deficits Santiago Mayers M.D. Dec 25, 2016 00:05
[2016-12-25 00:13] VITALS: BP 140/70
[2016-12-25] MEDS: oxyCODONE 5mg IR tab ORAL PRN ×2 (00:19→05:56)
[2016-12-25 04:28] VITALS: BP 148/91
[2016-12-25] MEDS: Clindamycin 600mg 50 ML IVPB SCH ×3 (05:49→21:12)
[2016-12-25] MEDS: NovoLOG Insulin Flexpen SUBQ SCH ×4 (05:51→21:15)
[2016-12-25 08:00] VITALS: BP 137/62
[2016-12-25] MEDS: Lisinopril 10mg tab ORAL SCH (08:30)
[2016-12-25] MEDS: celeBREX 200mg Cap **SURGERY PATIENTS ONLY ORAL SCH (08:30)
[2016-12-25] MEDS: Ciprofloxacin 500mg tab ORAL SCH ×2 (08:30→21:12)
[2016-12-25] MEDS: oxyCONTIN 20mg tab ORAL SCH ×2 (08:31→21:13)
[2016-12-25] MEDS: Pericolace tab ORAL SCH ×2 (08:31→18:33)
[2016-12-25] MEDS: Docusate 100mg tablet ORAL SCH ×3 (08:31→18:34)
[2016-12-25] MEDS: metFORMIN 500mg tab ORAL SCH ×2 (08:31→18:33)
[2016-12-25] MEDS: Acetaminophen 500mg (ES) tab ORAL SCH ×3 (08:37→18:34)
[2016-12-25] MEDS: Enoxaparin 40mg Inj SUBQ SCH (08:43)
[2016-12-25 12:00] VITALS: BP 121/64
[2016-12-25 16:00] VITALS: BP 128/69
--- NOTE | 2016-12-25 16:10 | General Progress Note ---
Assessment/Plan Problem List: (1) Arthritis of knee, left Assessment & Plan: - s/p L TKA - encourage mobilization/ambulation - encourage incentive spirometry to optimize pulmonary hygiene - DVT/GI prophylaxis as appropriate - ctm CBC and hemodynamics - ctm electrolytes, adjust/replete prn - PT/OT/ST, if indicated - pain control, supportive care, bowel regimen - DC planning Total of 31mins of prolonged time spent on care coordination and counseling, in addition to face to face time ICD Codes: M17.12 - Unilateral primary osteoarthritis, left knee SNOMED: 186761681 (2) HTN (hypertension) Assessment & Plan: Cont BP meds, thus far stable ICD Codes: I10 - Essential (primary) hypertension SNOMED: 55189449 (3) DM2 (diabetes mellitus, type 2) Assessment & Plan: Stable Cont sliding scale, metformin Change to diabetic diet ICD Codes: E11.9 - Type 2 diabetes mellitus without complications SNOMED: 33446684 Subjective Date patient seen: Dec 25, 2016 Time patient seen: 16:09 ROS Limited/Unobtainable: No Allergies: Coded Allergies: ORANGE (Verified Allergy, Mild, 12/21/16) WALNUT (Verified Allergy, Mild, 12/21/16) PENICILLINS (Verified Allergy, Unknown, 12/20/16) Subjective s/p L TKA, no periop or postop complications. Postop pain well controlled. No chest pain or dyspnea. Objective Last 24 Hour Vital Signs Date Time Temp Pulse Resp B/P Pulse Ox O2 Delivery O2 Flow Rate FiO2 12/25/16 13:49 97.5 12/25/16 12:00 97.0 77 20 121/64 98 Room Air 12/25/16 09:30 97.5 12/25/16 08:30 137/62 12/25/16 08:00 98.1 88 20 137/62 99 Room Air 12/25/16 04:28 97.5 100 20 148/91 97 Room Air 12/25/16 00:13 98.1 97 19 140/70 97 Room Air 12/24/16 20:17 97.7 98 18 146/77 96 Room Air Intake and Output 12/24/16 12/25/16 19:00 07:00 Intake Total 700 ml 100 ml Balance 700 ml 100 ml Intake Oral 700 ml IV Total 100 ml # Voids 3 2 # Bowel Movements 1 Height (Feet): 5 Height (Inches): 7.00 Weight (Pounds): 210 Objective General: alert, cooperative, no distress, appears stated age Head: normocephalic, without obvious abnormality, atraumatic Eyes: conjunctivae/corneas clear. PERRL, EOM's intact Throat: lips, mucosa, and tongue normal. MMM Neck: supple, symmetrical, trachea midline, and no JVD Lungs: clear to auscultation bilaterally Heart: regular rate and rhythm, S1, S2 normal, no murmur, click, rub or gallop Abdomen: soft, non-tender, non-distended, bowel sounds normal; no masses or organomegaly Extremities: extremities normal, atraumatic, no cyanosis or edema Pulses: 2+ and symmetric Skin: skin color, texture, turgor normal; no rashes or lesions Neurologic: grossly normal, no focal deficits PIOTR LEAL Dec 25, 2016 16:10
[2016-12-25 20:00] VITALS: BP 155/68
[2016-12-26 04:00] VITALS: BP 147/71
[2016-12-26] MEDS: Clindamycin 600mg 50 ML IVPB SCH ×2 (05:52→14:03)
[2016-12-26] MEDS: NovoLOG Insulin Flexpen SUBQ SCH ×3 (05:54→17:30)
[2016-12-26 06:00] VITALS: BP 147/71
[2016-12-26 08:16] VITALS: BP 151/75
[2016-12-26] MEDS: metFORMIN 500mg tab ORAL SCH ×2 (08:25→17:25)
[2016-12-26] MEDS: oxyCONTIN 20mg tab ORAL SCH (08:25)
[2016-12-26] MEDS: Pericolace tab ORAL SCH ×2 (08:26→17:24)
[2016-12-26] MEDS: Ciprofloxacin 500mg tab ORAL SCH ×2 (08:26→17:24)
[2016-12-26] MEDS: celeBREX 200mg Cap **SURGERY PATIENTS ONLY ORAL SCH ×2 (08:27→17:25)
[2016-12-26] MEDS: Docusate 100mg tablet ORAL SCH ×3 (08:27→17:26)
[2016-12-26] MEDS: Lisinopril 10mg tab ORAL SCH (08:27)
[2016-12-26] MEDS: Enoxaparin 40mg Inj SUBQ SCH (08:32)
[2016-12-26] MEDS: Acetaminophen 500mg (ES) tab ORAL SCH ×3 (09:15→19:04)
[2016-12-26 13:00] VITALS: BP 151/73
--- NOTE | 2016-12-26 14:51 | Discharge Summary ---
Discharge Summary Hospital Course Date of Admission Dec 21, 2016 at 06:59 Date of Discharge Dec 26, 2016 Admitting Diagnosis L knee OA, DMII, HTN Reason for Hospitalization: L TKA HPI Arelis Devine is a 66 year old female who was admitted on Dec 21, 2016 at 06: 59 for Lt Knee Osteoarthritis Consultations Orthopedics Procedures L TKA Hospital Course 66 y/o female with hx of L knee OA, s/p L TKA without any periop or postop complications. After uneventful hospital course she was dced to rehab facility Discharge Medications New Medications: Enoxaparin* (Lovenox*) 40 Mg/0.4 Ml Inj 40 MG SUBQ DAILY for 14 Days, #14 SYR Continued Medications: Atorvastatin (Lipitor) 80 Mg Tablet 40 MG ORAL BEDTIME, #30 TAB 0 Refills Dulaglutide (Trulicity) 0.75 Mg/0.5 Ml Pen.injctr 0.75 MG SQ 1xweek, EA Lisinopril* (Lisinopril*) 10 Mg Tablet 10 MG ORAL DAILY, TAB Metformin Hcl* (Metformin Hcl*) 1,000 Mg Tablet 1000 MG ORAL BID, TAB [jardiance] () 25 MG DAILY Discontinued Medications: Ciprofloxacin HCl (Cipro) 250 Mg Tablet 500 MG ORAL EVERY 12 HOURS, TAB Discharge Condition Upon Discharge: stable Discharge Disposition Patient was discharged to rehab Discharge Diagnoses: (1) HTN (hypertension) (2) Arthritis of knee, left (3) DM2 (diabetes mellitus, type 2) PIOTR LEAL Dec 26, 2016 14:51
[2016-12-26 16:00] VITALS: BP 143/68
== END 2016-12-26 19:00 | disposition short-term general hospital (02) | DRG 470 ==
LOC: SDSOVERFLO 06:59 → 3E 19:06
PROC: 0SRD0J9 Replacement of Left Knee Joint with Synthetic Substitute, Cemented, Open Approach (ICD-10-PCS; principal; 2016-12-21 11:00)
DX: M17.12 Unilateral primary osteoarthritis, left knee (principal); I10 Essential (primary) hypertension; K21.9 Gastro-esophageal reflux disease without esophagitis; E11.9 Type 2 diabetes mellitus without complications; Z88.0 Allergy status to penicillin
CPT/HCPCS: 36415; 80048; 82962; 85025; 86850; 86900; 86901; 87081; 94003; 94150; C9399; J1815; J2250; S0077